=== PATIENT | male | born 1990 | race Caucasian/White ===

== ENCOUNTER 2019-07-20 08:15 | Emergency (ER) | payer MEDICAID ==
[~2019-07-20] VITALS: Ht 165.1 cm; Wt 59.0 kg
[2019-07-20 08:16] VITALS: BP_SYST 124
[2019-07-20] MEDS: LORazepam 2 MG/ML VIAL IVP ONE (08:39)
[2019-07-20 08:52] LABS: CALCIUM 9.1 mg/dL (8.4-11.0); CREATININE 1.27 mg/dL (0.55-1.30); POTASSIUM 3.8 mmol/L (3.5-5.1)
[2019-07-20 08:58] LABS: ALBUMIN 4.2 g/dL (3.4-4.8); TOTAL BILIRUBIN 0.4 mg/dL (0.0-1.0)
[2019-07-20 10:05] VITALS: BP_SYST 124
== END 2019-07-20 10:06 | disposition home or self-care (01) ==
LOC: SED 08:15
DX: R56.9 Unspecified convulsions (principal)
CPT/HCPCS: 36415; 80053; 96374; 99283; J2060

== ENCOUNTER 2020-01-12 21:44 | Emergency (ER) | payer MEDICAID ==
[~2020-01-12] VITALS: Ht 172.7 cm; Wt 63.5 kg
[2020-01-12 22:04] VITALS: BP_SYST 141
[2020-01-12] MEDS ORDERED: levETIRAcetam 500 MG TABLET PO ONE (22:30)
[2020-01-12 22:58] VITALS: BP_SYST 141
== END 2020-01-12 22:58 | disposition home or self-care (01) ==
LOC: SED 21:44
DX: Z76.0 Encounter for issue of repeat prescription (principal); R56.9 Unspecified convulsions; Z86.73 Personal history of transient ischemic attack (TIA), and cerebral infarction without residual deficits; Z86.79 Personal history of other diseases of the circulatory system
CPT/HCPCS: 99281

== ENCOUNTER 2020-02-25 23:07 | Emergency (ER) | payer MEDICAID ==
[~2020-02-25] VITALS: Ht 165.1 cm; Wt 61.2 kg
[2020-02-25 23:20] VITALS: BP_SYST 133
--- NOTE | 2020-02-25 23:20 | NUR ---
Pt ambulatory to bed hallway for evaluation
--- NOTE | 2020-02-25 23:53 | NUR ---
Patient presents to ER for a prescription refill of Keppra. Patient states he has a diagnosis of Epilepsy and his last episode was yesterday. Patient states he is out of his medication. No other medical complaints at this time.
--- NOTE | 2020-02-25 23:55 | NUR ---
ER at bedside examining patient.
[2020-02-25 23:58] VITALS: BP_SYST 133
--- NOTE | 2020-02-25 23:58 | NUR ---
Patient given written and verbal discharge instructions and verbalizes understanding. ER MD discussed with patient the results and treatment provided. Patient in stable condition. ID arm band removed. No IV Rx of Keppra given. Patient educated on pain management and to follow up with PMD. Pain Scale 0/10. Opportunity for questions provided and answered. Medication side effect fact sheet provided.
== END 2020-02-25 23:58 | disposition home or self-care (01) ==
LOC: SED 23:07
DX: G40.909 Epilepsy, unspecified, not intractable, without status epilepticus (principal); Z76.0 Encounter for issue of repeat prescription
CPT/HCPCS: 99281